=== PATIENT | female | born 1990 | race Caucasian/White ===

== ENCOUNTER → 2017-05-23 | Outpatient (CLI) | payer MEDICAID ==
[~2017-05-23] MED LIST: IBUP-1223 PO; Kratom PO; METH500T97 PO; OXYC-302 PO; TRAM100T2 PO; [UNRECOGNIZED DRUG - OTHER] PO; [UNRECOGNIZED DRUG - OTHER] PO
== END | disposition home or self-care (01) ==
LOC: CFH 14:15
PROVIDERS: ATTEND Genetic Counselor, MS
DX: M51.26 Other intervertebral disc displacement, lumbar region (principal); M51.27 Other intervertebral disc displacement, lumbosacral region
CPT/HCPCS: 72148